=== PATIENT | female | born 1955 | race Caucasian/White ===

== ENCOUNTER 2018-05-31 17:20 | Emergency (ER) | payer SELFPAY ==
[~2018-05-31] VITALS: Ht 172.7 cm; Wt 109.1 kg
[2018-05-31 17:25] VITALS: Ht 172.7 cm; Wt 109.1 kg
[2018-05-31] MEDS ORDERED: ZESTRIL40 MG PO (17:26)
[2018-05-31] MEDS ORDERED: NORVASC10 MG PO (17:26)
[2018-05-31] MEDS ORDERED: VOLTAREN75 MG PO (19:20)
[2018-05-31 19:55] VITALS: BP 169/82
== END 2018-05-31 19:56 | disposition home or self-care (01) ==
LOC: D.ER 17:20
DX: S49.91XA Unspecified injury of right shoulder and upper arm, initial encounter (principal); V43.52XA Car driver injured in collision with other type car in traffic accident, initial encounter; Y93.89 Activity, other specified; Y92.410 Unspecified street and highway as the place of occurrence of the external cause; M79.631 Pain in right forearm; I10 Essential (primary) hypertension